=== PATIENT | female | born 1975 | race Caucasian/White ===

== ENCOUNTER 2024-07-17 13:09 | Outpatient (OUT) | payer SELFPAY ==
--- NOTE | 2024-07-17 13:12 | XR_ITS ---
The [address] [address] Patient Name: ZEN LEGGETT MRN: [id number] date: 1975 Sex: F Assigned Patient Location: [facility] Current Patient Location: [facility] Accession/Order Number: [id number] Exam Date: 07/17/2024 13:15 Report Date: 07/17/2024 13:52 At the request of: JOHANNE LANDERS Procedure: XR ankle LT min 3V EXAM: XR ankle LT min 3V HISTORY: Left Ankle Pain COMPARISON: None. TECHNIQUE: 3 views of the left ankle were obtained with weightbearing. FINDINGS: There is no apparent acute fracture or dislocation. There is evidence of prior trauma to the ankle with surgery, and hardware is in place. Mild degenerative changes with small osteophytes are seen at the ankle joint. Degenerative changes are also seen in the midfoot. Osteophytes arise from the posterior calcaneus. Soft tissue swelling about the ankle is noted. XR/XR ankle LT min 3V IMPRESSION: No apparent acute fracture or dislocation. There is evidence of prior trauma and surgical repair. Degenerative changes are present, and osteophytes arise from the posterior calcaneus. Comparison with a previous study may be helpful in determining the chronicity of these findings. Electronically authenticated by: JOHANNE MELLO Date: 07/17/2024 13:52
== END 2024-07-17 13:10 | disposition home or self-care (01) ==
LOC: RAD 13:09
PROVIDERS: Visit Provider Podiatrist Foot & Ankle Surgery
DX: M25.572 Pain in left ankle and joints of left foot (principal)
CPT/HCPCS: 73610